=== PATIENT | female | born 1990 | race Caucasian/White ===

== ENCOUNTER 2016-12-28 07:21 | Emergency (ER) | payer OTHER ==
[~2016-12-28] VITALS: Ht 170.2 cm; Wt 63.5 kg
[2016-12-28 07:25] VITALS: BP 131/87
[2016-12-28] MEDS ORDERED: ACETAMINOPHEN EXTRA STRENGTH 500 MG TAB PO ONE (07:35)
[2016-12-28 07:42] VITALS: BP 125/71
--- NOTE | 2016-12-28 07:43 | NUR ---
PATIENT IS A 26 YO FEMALE BIB [facility] FOR PREBOOK EXAM. PATIENT IS AWAKE AND ALERT ABLE TO AMBULATE NO C/O OF INJURY STATES SHE HAS A HEADACHE. TO OVERFLOW 1 FOR MD [place].
--- NOTE | 2016-12-28 07:43 | NUR ---
Patient discharged with v/s stable. Written and verbal after care instructions given and explained. Patient verbalized understanding. Police with in custody. All questions addressed prior to discharge. Advised to follow up with PMD.
== END 2016-12-28 07:43 ==
LOC: MED 07:21
DX: Z02.89 Encounter for other administrative examinations (principal); S09.8XXA Other specified injuries of head, initial encounter; F17.210 Nicotine dependence, cigarettes, uncomplicated; V89.2XXA Person injured in unspecified motor-vehicle accident, traffic, initial encounter; Y93.89 Activity, other specified; Y92.89 Other specified places as the place of occurrence of the external cause; Y99.8 Other external cause status
CPT/HCPCS: 99283